=== PATIENT | male | born 1980 | race Caucasian/White ===

== ENCOUNTER 2021-12-29 15:22 | Emergency (ER) | payer OTHER ==
[2021-12-29 15:35] VITALS: BP 120/76; PULSE 58; TEMP 98; BMI 27.4
[2021-12-29] MEDS ORDERED: KETOROLAC TROMETHAMINE 30 MG/1 ML VIAL IM ONE (16:01)
[2021-12-29] MEDS ORDERED: KETOROLAC TROMETHAMINE 30 MG/1 ML VIAL ONE (16:18)
== END 2021-12-29 16:51 | disposition home or self-care (01) ==
LOC: JERFT 15:22
PROC: 3E0233Z Introduction of Anti-inflammatory into Muscle, Percutaneous Approach (ICD-10-PCS; principal; 2021-12-29)
DX: M54.42 Lumbago with sciatica, left side (principal)
CPT/HCPCS: 96372; 99284-25

== ENCOUNTER 2022-01-16 08:05 | Emergency (ER) | payer OTHER ==
[2022-01-16 08:17] VITALS: BP 137/75; PULSE 53; TEMP 97.4; BMI 26.6
[2022-01-16] MEDS ORDERED: KETOROLAC TROMETHAMINE 30 MG/1 ML VIAL IM ONE (09:10)
[2022-01-16] MEDS ORDERED: LIDOCAINE 5% TOPICAL PATCH TP ONE (09:10)
[2022-01-16] MEDS ORDERED: ACETAMINOPHEN 500 MG TABLET (FP) PO ONE (09:10)
[2022-01-16] MEDS ORDERED: ACETAMINOPHEN 325 MG TABLET (FP) ONE (09:38)
[2022-01-16] MEDS ORDERED: KETOROLAC TROMETHAMINE 30 MG/1 ML VIAL ONE (09:38)
[2022-01-16] MEDS ORDERED: LIDOCAINE 5% TOPICAL PATCH ONE (09:38)
[2022-01-16] MEDS ORDERED: LIDOCAINE PATCH REMOVAL MC SCH (22:00)
== END 2022-01-16 10:30 | disposition home or self-care (01) ==
LOC: JER 08:05
PROC: 3E0233Z Introduction of Anti-inflammatory into Muscle, Percutaneous Approach (ICD-10-PCS; principal; 2022-01-16)
DX: M54.41 Lumbago with sciatica, right side (principal); M54.42 Lumbago with sciatica, left side
CPT/HCPCS: 96372; 99283-25